=== PATIENT | female | born 2000 ===

== ENCOUNTER 2021-03-01 04:02 | Emergency (ER) | payer MEDICAID, OTHER ==
[~2021-03-01] VITALS: Ht 170.2 cm; Wt 72.6 kg
[2021-03-01 04:20] VITALS: BP 132/100
== END 2021-03-01 04:34 | disposition left against medical advice (07) ==
LOC: EDBD 04:02 → ER 04:02
DX: R10.11 Right upper quadrant pain (principal); R11.0 Nausea; R19.7 Diarrhea, unspecified; Z53.21 Procedure and treatment not carried out due to patient leaving prior to being seen by health care provider